=== PATIENT | female | born 1995 | race Caucasian/White ===

== ENCOUNTER 2018-12-29 12:14 | Emergency (ER) | payer SELFPAY ==
--- NOTE | 2018-12-29 15:25 | RAD REPORT ---
EXAM DESCRIPTION: CT - Head Brain Wo Cont - 12/29/2018 3:14 pm CLINICAL HISTORY: Syncope, seizure like activity COMPARISON: None. TECHNIQUE: Axial 5 mm thick images of the head were obtained without IV contrast. All CT scans are performed using dose optimization technique as appropriate and may include automated exposure control or mA/KV adjustment according to patient size. FINDINGS: No intracranial hemorrhage, mass, edema or shift of mid-line structures. No acute infarcti on changes seen. No abnormal extra-axial fluid collections. Ventricles are normal. Mastoid air cells and visualized portions of the paranasal sinuses are clear. No acute bony findings. IMPRESSION: Negative non-contrast CT head examination.
[2018-12-29 15:56] LABS: Urine Bacteria 20-50 /HPF (<20); Urine Culture Reflex Order REFLEXED; Urine Mucus 1+ /HPF (NONE SEEN); Urine RBC <5 /HPF (NONE SEEN)
[2018-12-29 15:56] LABS: Urine Blood TRACE (NEG); Urine Glucose NEGATIVE (NEG); Urine Protein 1+ (NEG); Urine pH 7.5 (5.0-7.0)
[2018-12-29 16:05] LABS: ALT/SGPT 45 U/L (12-78); AST/SGOT 56 U/L (15-37); Albumin 4.2 g/dL (3.4-5.0); Alkaline Phosphatase 80 U/L (45-117); BUN Blood Urea Nitrogen 10 mg/dL (7-18); Bicarbonate 30 mmol/L (21-32); Bilirubin Direct 0.4 mg/dL (0-0.2); Bilirubin Total 1.1 mg/dL (0.2-1.0); Glucose Level 85 mg/dL (74-106); Potassium 3.7 mmol/L (3.5-5.1); Protein, Total 7.8 g/dL (6.4-8.2); Sodium Level 137 mmol/L (136-145)
[2018-12-29 16:31] LABS: Absolute Monocytes 0.8 K/uL (0.1-1.3); Basophils % 0.5 % (0-1.3); Eosinophils % 1.2 % (0-4.4); Hematocrit 42.6 % (36.0-45.0); Lymphocytes % 29.4 % (15.3-44.8); MPV 9.9 fL (7.6-11.3); Monocytes % 11.4 % (3.3-12.3); RBC Red Blood Cell Count 4.44 M/uL (3.86-4.86)
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
--- NOTE | 2018-12-29 16:34 | ER ---
Nurse's Notes [facility] Name: Stacey Holman Age: 23 yrs Sex: Female : 1995 Arrival Date: 12/29/2018 Time: 12:15 Bed 28 Private MD: Diagnosis: Epilepsy and recurrent seizures Presentation: 12/29 12:27 Presenting complaint: Patient states: "I keep having episodes where I fall asleep or hb pass out, it has happened for a few years but it is getting worse. I lose hours of time, and when it happens people can't wake me up. Yesterday it happened twice, the second time I lost 2 hrs of time". Transition of care: patient was not received from another setting of care. Onset of symptoms is unknown. Risk Assessment: Do you want to hurt yourself or someone else? Patient reports no desire to harm self or others. Care prior to arrival: None. 12:27 Method Of Arrival: Ambulatory hb 12:27 Acuity: SHERI 3 hb Historical: - Allergies: 12:30 No Known Allergies; hb - Home Meds: 12:30 None [Active]; hb - PMHx: 12:30 Mitral Valve Prolapse; hb - PSHx: 12:30 None; hb - Immunization history:: Adult Immunizations up to date. - Social history:: Smoking status: Patient uses tobacco products, smokes one-half pack cigarettes per day. - Ebola Screening: : No symptoms or risks identified at this time. - Family history:: not pertinent. - Hospitalizations: : No recent hospitalization is reported. Screenin:30 Abuse screen: Denies threats or abuse. Denies injuries from another. Nutritional hb screening: No deficits noted. Tuberculosis screening: No symptoms or risk factors identified. Assessment: 15:01 General: Appears in no apparent distress. comfortable, Behavior is cooperative, em anxious, reports passing out and waking up confused after several hours, denies headache, reports this has happened in the past about five years ago, denies N/V. Pain: Denies pain. Neuro: Level of Consciousness is awake, alert, obeys commands, Oriented to person, place, time, situation, Secured Entrance Monitor are equal bilaterally Moves all extremities. Gait is steady, Speech is normal, Facial symmetry appears normal, Pupils are PERRLA. Cardiovascular: Heart tones S1 S2 present Capillary refill < 3 seconds Patient's skin is warm and dry. Rhythm is regular. Respiratory: Airway is patent Respiratory effort is even, unlabored, Respiratory pattern is regular, symmetrical. GI: Abdomen is flat. Derm: Skin is intact, is healthy with good turgor, Skin is pink, warm \\T\\ dry. Musculoskeletal: Capillary refill < 3 seconds, Range of motion: intact in all extremities. 16:00 Reassessment: Patient appears in no apparent distress at this time. Patient and/or em family updated on plan of care and expected duration. Pain level reassessed. Patient is alert, oriented x 3, equal unlabored respirations, skin warm/dry/pink. no seizure activity noted. 16:50 Reassessment: Patient appears in no apparent distress at this time. Patient and/or em family updated on plan of care and expected duration. Pain level reassessed. Patient is alert, oriented x 3, equal unlabored respirations, skin warm/dry/pink. no seizure activity noted. Vital Signs: 12:29 BP 146 / 95; Pulse 67; Resp 16; Temp 98.2; Pulse Ox 100% on R/A; Pain 0/10; hb 15:00 BP 125 / 94; Pulse 80; Resp 18; Pulse Ox 99% on R/A; em 16:00 BP 119 / 86; Pulse 74; Resp 18; Pulse Ox 99% on R/A; em 16:52 BP 125 / 89; Pulse 73; Resp 16; Pulse Ox 100% on R/A; Pain 0/10; em ED Course: 12:15 Patient arrived in ED. as 12:29 Triage completed. hb 12:29 Arm band placed on. hb 14:45 Giovani Adams MD is Attending Physician. rn 14:45 Sage Santos LVN is Primary Nurse. em 15:01 Patient has correct armband on for positive identification. Placed in gown. Bed in low em position. Call light in reach. Pulse ox on. NIBP on. 15:[address] nj 15:12 CT completed. Patient tolerated procedure well. Patient moved back from CT. nj 15:13 CT Head Brain wo Cont In Process Unspecified. EDMS 15:30 Initial lab(s) drawn, by me, sent to lab. Urine collected: clean catch specimen, clear. em Inserted saline lock: 20 gauge in left antecubital area, using aseptic technique. Blood collected. 15:48 EKG done, by it technician. reviewed by Giovani Adams MD. 3 16:34 Rufino Crum MD is Referral Physician. rn 16:49 No provider procedures requiring assistance completed. IV discontinued, intact, em bleeding controlled, No redness/swelling at site. Pressure dressing applied. Administered Medications: No medications were administered Outcome: 16:34 Discharge ordered by MD. rn 16:49 Discharged to home ambulatory. em 16:49 Condition: good 16:49 Discharge instructions given to patient, Instructed on discharge instructions, follow up and referral plans. medication usage, Demonstrated understanding of instructions, follow-up care, medications, Prescriptions given X 1. 16:53 Patient left the ED. em Signatures: Dispatcher [employer] EDSage Avila, SABINA OVALLESN Valerie Ames Roman, MD MD rn Baxter, Heather, RN RN hb Jordan, Nathan nj Montes, Shakira 3
--- NOTE | 2018-12-31 10:30 | EKG ---
Test Date: 2018-12-29 Test Time: 15:39:51 Tobacco Wrapping Machine Tender: ENEDELIA MEASUREMENT RESULTS: Intervals: Rate: 73 ME: 150 QRSD: 74 QT: 372 QTc: 409 [place]: P: 59 ME: 150 QRS: 71 T: 71 INTERPRETIVE STATEMENTS: Sinus rhythm with marked sinus arrhythmia Otherwise normal ECG No previous ECG available for comparison Electronically Signed On 12-30-18 08:10:05 CDT by Jose Morrell
== END 2018-12-29 16:53 | disposition home or self-care (01) ==
LOC: ER 12:14
DX: G40.909 Epilepsy, unspecified, not intractable, without status epilepticus (principal); F17.210 Nicotine dependence, cigarettes, uncomplicated
CPT/HCPCS: 36415; 70450; 80048; 80076; 81003; 81015; 81025; 85025; 87086; 87088; 93005; 99284